=== PATIENT | female | born 1935 | race Caucasian/White ===

== ENCOUNTER 2016-09-24 19:12 | Inpatient (IN) ==
[2016-09-24] MEDS ORDERED: ONDANSETRON 4 MG/2 ML VIAL IV STA ×2 (19:54→20:47)
[2016-09-24] MEDS ORDERED: HYDROmorphone 2 MG/1 ML VIAL IV STA (19:54)
--- NOTE | 2016-09-24 19:57 | Emergency Department Note ---
Arrival - Arrival Chief Complaint: Extremity Injury Stated Complaint: hip fx ED Nursing Triage Note: left femoral head fracture Mode of Arrival: Stretcher Limitations: No Limitations Source: Patient, Family Time Seen by Provider: 09/24/16 19:52 - History of Present Illness HPI Narrative: This 81-year-old white female presents approximate 4 hours after falling in the grocery store by catching her foot and the wheels of the buggy and landing on her left side. She was subsequently taken to [facility] where she was found to have an acute displaced left intertrochanteric femoral neck fracture. She has already had one fractured hip repaired by Dr. Shelton Verduzco and she was sent here for similar circumstances on the left. Currently other than discomfort and nausea, she has no complaints of chest pain, shortness of breath , marifer vomiting, or diaphoresis. Currently she is medically stable. Onset (ago): hour(s) (Patient presents 4 hours post onset of symptoms) Review of System - Review of System 12 point system: reviewed and no additional remarkable complaints except as stated - Review of System Constitutional: Present: as per HPI Respiratory: Present: as per HPI Cardiovascular: Present: as per HPI Gastrointestinal: Present: as per HPI Musculoskeletal: Present: as per HPI Medical,Surgical,& Family Hx - Medical History Cardio: History of: Hypertension Gastrointestinal: History of: GERD - Social History Smoking Status: Never smoker Frequency of Alcohol Use: None Type of Drug Use: None Exam Physical Examination: GENERAL: Well developed, well nourished elderly white in no acute distress. HEENT: Normocephalic. No trauma. Moist mucous membranes. EOMI. PERRLA. ENT NML NECK: Supple. No adenopathy. CARDIAC: Regular. No murmurs. Heart rate 73 CHEST: Clear to auscultation. No respiratory distress. O2 sat 98 ABDOMEN: Soft. Nontender. Active bowel sounds. EXTREMITIES: No trauma. Shortened and externally rotated left lower extremity with resistance to any range of motion.. No pedal edema. SKIN: No diaphoresis. No rash. NEURO: Alert. Neuro intact no focal deficits. Vital Signs: Vital Signs Temperature 97.3 F L 09/24/16 19:20 Pulse Rate 73 09/24/16 19:20 Respiratory Rate 16 09/24/16 19:20 Blood Pressure 187/95 09/24/16 19:20 O2 Sat by Pulse Oximetry 98 09/24/16 19:20 Course - Reevaluation(s) Reevaluation #1: Obviously patient to be admitted. - Consultations Consultation #1: Discussed with hospitalist service who will admit with orthopedics in consultation. Consultation #2: Discussed with Dr. Shelton Verduzco who will plan on orthopedic repair in the morning. Results - Labs Labs: Lab per [place] urinalysis unremarkable, potassium 2.9, BUN 15, creatinine 0.7, white blood cell count 8600, hematocrit 37.7, PT PTT normal. - Impressions EKG: Sinus rhythm at 79 with normal NV interval and QRS duration. Poor R-wave progression anteriorly versus old anterior NM. Nonspecific ST changes. No acute injury pattern noted. - Diagnostic Findings Procedure: Chest x-ray: image reviewed by me, report reviewed by me (Negative chest.), X-ray: image reviewed by me, report reviewed by me (Left hip per [place] reveals acute displaced left intertrochanteric femoral neck fracture with old left pubic symphysis fracture and diffuse osteoarthritis with a background of osteopenia) Disposition Clinical Impression: Left femoral neck fracture Case discussed with: patient, patient's family Condition: Guarded Time of Disposition: 20:30
[2016-09-24] MEDS ORDERED: ONDANSETRON 4 MG/2 ML VIAL ONE ×2 (20:06→20:44)
[2016-09-24] MEDS ORDERED: HYDROmorphone 2 MG/1 ML VIAL ONE (20:07)
--- NOTE | 2016-09-24 20:17 | XRay Report ---
XR chest 1V portable Indication: Preop respiratory evaluation. Chest one view: Comparison 10/06/2012. Calcified atheromatous disease of the aorta is stable. Heart size is normal. No new infiltrates are seen with mild pulmonary hypoinflation present. Degenerative changes of the right shoulder and scoliosis are stable. Impression: Pulmonary hypoinflation. Otherwise no acute cardiopulmonary disease. PROCEDURE INTERPRETED AT [facility] DEPARTMENT OF RADIOLOGY Final Report Signed by: Guanaco Barton M.D.
[2016-09-24] MEDS ORDERED: METOCLOPRAMIDE 10 MG/2 ML VIAL ONE (20:44)
[2016-09-24] MEDS ORDERED: METOCLOPRAMIDE 10 MG/2 ML VIAL IV STA (20:47)
[2016-09-24] MEDS ORDERED: FAMOTIDINE 20 MG/2 ML VIAL IV ONE (20:55)
--- NOTE | 2016-09-24 20:55 | Hospitalist History & Physical ---
Assessment and Plan (1) Closed left hip fracture Status: Acute Assessment and plan: This is a 89-year-old patient with hypertension who presents to the hospital with left hip fracture. The patient's hypertension will be treated with Catapres patch. We will supplement potassium and recheck electrolytes in the morning. We will consult Dr. Poeples for surgical treatment of the patient's hip fracture. EKG reveals decreased T-wave anteriorly consistent with previous infarction. The patient has no clinical evidence of acute infarction. Current Visit: Yes Qualifiers: Encounter type: initial encounter Qualified Code(s): S72.002A - Fracture of unspecified part of neck of left femur, initial encounter for closed fracture (2) Hypertension Status: Acute Current Visit: Yes Qualifiers: Hypertension type: essential hypertension Qualified Code(s): I10 - Essential (primary) hypertension (3) Hypokalemia Status: Acute Current Visit: Yes History of Present Illness Chief complaint: Left hip pain History of present illness: Ms. Tanner is a 81 year old female with history of essential hypertension. The patient fell in the grocery store and sustained left hip fracture. The patient was transferred to [facility] for further evaluation. The patient denies chest pain shortness of breath palpitations or fever. The patient's hip pain symptom is moderate, continuous, and improving after IV sedation. The sedation has caused the patient to have nausea and vomiting. Medical,Surgical,& Family Hx - Medical History Cardio: History of: Hypertension Gastrointestinal: History of: GERD - Surgical History Orthopedic Surgeries: Surgical HX of;: Total Hip Replacement - Family History Family History: Reports;: Family Hypertension - Social History Smoking Status: Never smoker Frequency of Alcohol Use: None Type of Drug Use: None Marital Status: Lives With:: Children Functional capacity: independent ambulation 12 point system: reviewed and no additional remarkable complaints except as stated Exam - Constitutional Vitals: Period Temp Pulse Resp BP Sys/Villa Pulse Ox Last 24 Hr 97.3 F-97.3 F 73-73 16-16 187-187/95-95 98 Exam: Constitutional System: Moderate distress. No tremulousness. Head: Normocephalic, atraumatic. Ears, Nose and Throat System: No evidence of Otitis or Mastoiditis. No epistaxis or discharge Eyes System: Pupils equal, round, and reactive. Extraocular muscles intact. Neck: Supple, without adenopathy, No jugular venous distention. No thyromegaly , neck mass, or prior surgery apparent. Respiratory System: Chest clear to auscultation. Cardiovascular System: Heart with regular rate and rhythm. No murmur. GI System: Abdomen soft, nontender. Normo active bowel sounds present. Musculoskeletal System: limbs with no pedal edema. The left lower extremity is shortened and externally rotated Neurological System: No discernable sensory deficit. No aphasia Psychiatric System: Conversation is rational Results - Labs Lab Results: I have reviewed the past 24 hour labs
[2016-09-24] MEDS: FAMOTIDINE 20 MG/2 ML VIAL IV SCH (20:57)
[2016-09-24] MEDS ORDERED: cloNIDine 0.3 MG/24 HR PATCH TRANSDERM SCH (22:13)
[2016-09-24] MEDS ORDERED: ZALEPLON 5 MG CAPSULE PO PRN (22:13)
[2016-09-24] MEDS: SODIUM CHLORIDE 0.9% 1,000 ML IV SCH (22:44)
[2016-09-24] MEDS: POTASSIUM CHLORIDE RIDER 10 MEQ in PREMIX 1 EACH IV SCH (22:51)
[2016-09-24] MEDS: ONDANSETRON 4 MG/2 ML VIAL IV PRN (23:33)
[2016-09-24] MEDS: MORPHINE 2 MG/1 ML SYRINGE IV PRN (23:33)
[2016-09-25] MEDS: POTASSIUM CHLORIDE RIDER 10 MEQ in PREMIX 1 EACH IV SCH ×3 (02:28→07:55)
[2016-09-25] MEDS: MORPHINE 2 MG/1 ML SYRINGE IV PRN ×2 (03:10→08:42)
[2016-09-25 05:19] LABS: Basophils % 0.4 % (0.0-0.8); Eosinophils % 0.1 % (0.00-10.9); Hematocrit 31.1 VOL% (35.7-47.0); Hemoglobin 10.9 GM/DL (12.0-16.0); Immature Granulocytes % 0.3 %; Immature Granulocytes Absolute 0.02 #; Lymphocytes # 1.8 10*3/uL (1.4-4.0); Lymphocytes % 25.1 % (21.3-54.2); Mean Corpuscular Hemoglobin 32 PG (27-34); Mean Corpuscular Volume 90.9 FL (87-102); Monocytes # 0.7 10*3/uL (0.11-0.8); Monocytes % 9.5 % (1.7-12.7); Neutrophils # 4.5 10*3/uL (1.4-7.4); Neutrophils % 64.6 % (38.7-73.9); Platelet Count 149 T/CUMM (130-400); Red Blood Count 3.42 MC/CUMM (3.8-5.5); Red Cell Distribution Width 12.6 % (9.3-17.3)
[2016-09-25 05:29] LABS: INR 1.1; PT Patient Result 11.3 SECS
[2016-09-25 05:53] LABS: Blood Urea Nitrogen 11 MG/DL (7-18); Calcium 8.7 MG/DL (8.5-10.1); Glucose 125 MG/DL (74-106); Magnesium 1.7 MG/DL (1.8-2.4); Osmolality,Calculated 267.2 MOS/KG (273-304); Potassium 3.3 MMOL/L (3.5-5.1); Sodium 134 MMOL/L (136-145); Troponin I Only < 0.015 NG/ML (0.00-0.045)
--- NOTE | 2016-09-25 06:24 | EKG Report ---
Stationary ECG Study [facility] Test Date: 09/24/2016 8:26:24 PM Pat Name: ELPIDIO VEGA Department: Room: 319 Gender: F Major Assembly Lineman: MADHU : 1935 Requested by: Power Bazan Order Number: [id number] Reading MD: ELLA FOSTER Intervals [place] Rate: 79 P: 11 DC: 167 QRS: -25 QRSD: 92 T: 125 QT: 315 QTc: 350 Interpretive Statements SINUS RHYTHM LOW QRS VOLTAGE IN PRECORDIAL LEADS POSSIBLE ANTERIOR MYOCARDIAL INFARCTION Electronically Signed On 09-25-16 20:46:26 CDT by ELLA FOSTER [email or web address]
[2016-09-25] MEDS: ONDANSETRON 4 MG/2 ML VIAL IV PRN (06:27)
--- NOTE | 2016-09-25 07:42 | EKG Report ---
Stationary ECG Study [facility] Test Date: 09/25/2016 7:41:25 AM Pat Name: ELPIDIO VEGA Department: Room: 319 Gender: F Director Global Intelligence: ARTEMIO : 1935 Requested by: Yanick Perez Order Number: [id number] Reading MD: ZACK CHRISTY Intervals [place] Rate: 69 P: 46 MD: 188 QRS: -26 QRSD: 89 T: -25 QT: 400 QTc: 419 Interpretive Statements SINUS RHYTHM POSSIBLE ANTERIOR MYOCARDIAL INFARCTION, OF INDETERMINATE AGE Electronically Signed On 09-26-16 21:43:11 CDT by ZACK CHRISTY [email or web address]
[2016-09-25] MEDS: SODIUM CHLORIDE 0.9% 1,000 ML IV SCH ×2 (08:20→23:14)
--- NOTE | 2016-09-25 08:36 | XRay Report ---
History: Hip fracture. Preop Date: 09/25/2016 Study: Left hip 2 views Comparison exam: Outside hip x-ray September 24, 2016 There is a relatively acute comminuted intertrochanteric fracture of the left hip with minimal displacement and relatively good alignment. There is also moderate osteophyte formation and moderate to prominent joint space narrowing of the left hip. There is old fracture deformity of the left pubic bone. Impression: Relatively acute comminuted intertrochanteric fracture left hip, unchanged in alignment and positioning compared to the previous day Osteoarthritis left hip PROCEDURE INTERPRETED AT [facility] DEPARTMENT OF RADIOLOGY Final Report Signed by: Dr. Aline Kathleen
[2016-09-25] MEDS: FAMOTIDINE 20 MG/2 ML VIAL IV SCH ×2 (08:42→21:16)
[2016-09-25] MEDS ORDERED: POTASSIUM CHLORIDE RIDER 10 MEQ in PREMIX 1 EACH IV PRN (09:31)
[2016-09-25] MEDS ORDERED: MAGNESIUM SULF RIDER 2 GM in PREMIX 1 EACH IV PRN (09:32)
[2016-09-25] MEDS ORDERED: MAGNESIUM SULF RIDER 4 GM in PREMIX 1 EACH IV PRN (09:32)
--- NOTE | 2016-09-25 09:34 | Hospitalist Progress Note ---
<Obdulia Mondragon - Last Filed: 09/25/16 09:35> Assessment and Plan (1) Hypomagnesemia Status: Acute Assessment and plan: Magnesium noted at 1.7 today. We will correct and recheck in a.m. Current Visit: Yes (2) Closed left hip fracture Status: Acute Assessment and plan: Left hip repair scheduled this a.m. per Ortho. Current Visit: Yes Qualifiers: Encounter type: initial encounter Qualified Code(s): S72.002A - Fracture of unspecified part of neck of left femur, initial encounter for closed fracture (3) Hypertension Status: Acute Assessment and plan: Blood pressures have been essentially stable, we will continue the current medication regimen, and monitor. Current Visit: Yes Qualifiers: Hypertension type: essential hypertension Qualified Code(s): I10 - Essential (primary) hypertension (4) Hypokalemia Status: Acute Assessment and plan: Potassium noted at 3.3 today. We will replace and recheck in a.m. Current Visit: Yes Hospitalist: Subjective Interval history: Patient seen and examined, chart reviewed. No significant overnight events reported per nursing staff. Awaiting transport to the OR for repair of the left hip. Exam - Constitutional Vitals: Period Temp Pulse Resp BP Sys/Villa Pulse Ox Last 24 Hr 97.3 F-98.7 F 70-77 16-16 94-187/43-95 97-99 General appearance: normal weight, no acute distress - Head Head exam: Present: normal inspection, normocephalic, atraumatic - Eye Eye exam: Present: EOMI. Absent: conjunctival injection, nystagmus Pupils: Present: SUZANNE, normal accommodation - ENT ENT exam: Present: normal exam, normal external ear exam, normal oropharynx - Neck Neck exam: Present: normal inspection. Absent: lymphadenopathy, meningismus, tenderness, thyromegaly - Respiratory Respiratory exam: Present: clear to auscultation bilaterally. Absent: rales, rhonchi, stridor, wheezes - Cardiovascular Cardiovascular exam: Present: regular rate and rhythm. Absent: carotid bruit, diastolic murmur, gallop, JVD, rubs, systolic murmur - GI/Abdominal GI/Abdominal exam: Present: normal bowel sounds, soft - Extremities Exam Extremities exam: Present: edema (left hip), other (deformity to left hip) - Back Exam Back exam: Present: normal inspection - Neurological Exam Neurological exam: Present: alert, oriented X3 - Psychiatric Psychiatric exam: Present: normal affect, normal mood - Skin Skin exam: Present: normal color, warm, dry Results - Labs CBC & BMP: 09/25/16 04:44 09/25/16 04:44 Lab Results: I have reviewed the past 24 hour labs Quality Measures - VTE Contraindication to Pharmacological VTE Prophylaxis: High Risk of Bleeding <Ros Ugalde - Last Filed: 09/25/16 10:48> Hospitalist: Subjective Interval history: Patient seen and examined independently of JOSÉ MIGUEL Mondragon, agree with assessment and plan as documented. Patient reports that her pain is controlled. Hip repair scheduled for today by ortho. Exam - Constitutional Vitals: Period Temp Pulse Resp BP Sys/Villa Pulse Ox Last 24 Hr 97.3 F-98.7 F 70-77 16-16 94-187/43-95 97-99 Results - Labs CBC & BMP: 09/25/16 04:44 09/25/16 04:44
--- NOTE | 2016-09-25 10:32 | Orthopedic Consult Note ---
History of Present Illness Chief complaint: Left hip fracture History of present illness: Ms. Tanner is a 81 year old female See dictated report Home Medications Medication Instructions Recorded Confirmed Type Aspirin [Aspirin EC] 81 mg PO DAILY 09/25/16 09/25/16 History Carvedilol 3.125 mg PO BID 09/25/16 09/25/16 History Chlorthalidone 50 mg PO BID 09/25/16 09/25/16 History Clorazepate [Tranxene] 3.75 mg PO BID 09/25/16 09/25/16 History Losartan Potassium [Cozaar] 100 mg PO DAILY 09/25/16 09/25/16 History Naproxen Sodium [Aleve] 220 mg PO BID 09/25/16 09/25/16 History Pantoprazole Sodium [Protonix] 40 mg PO BID 09/25/16 09/25/16 History Potassium Chloride [Klor-Con M20] 20 meq PO BID 09/25/16 09/25/16 History Simvastatin 40 mg PO DAILY 09/25/16 09/25/16 History Allergies Allergy/AdvReac Type Severity Reaction Status Date / Time codeine Allergy Verified 09/25/16 00:46 Medical,Surgical,& Family Hx - Medical History Cardio: History of: Hypertension HEENT: History of: Ear Problem (BILATERAL HEARING LOSS), Eye Problem (CATARACTS) Gastrointestinal: History of: GERD Musculoskeletal: History of: Musculoskeletal Problems (ARTHRITIS IN BACK AND JOINTS) - Surgical History HEENT Surgeries: Surgical HX of: Tonsilectomy & Adenoidectomy (TONSILECTOMY) Abdominal Surgeries: Surgical HX of: Abdominal Surgery, Appendectomy, Cholecystectomy, Colonoscopy, EGD Reproductive Surgeries: Surgical HX of;: Genitourinary Surgery (PELVIC RECONSTRUCTIVE SURGERY), Hysterectomy Orthopedic Surgeries: Surgical HX of;: Total Hip Replacement - Family History Family History: Reports;: Family Hypertension, Family Stroke (BROTHER AND SISTERS) - Social History Smoking Status: Never smoker Frequency of Alcohol Use: None Type of Drug Use: None Exam - Constitutional Vitals: Period Temp Pulse Resp BP Sys/Villa Pulse Ox Last 24 Hr 97.3 F-98.7 F 70-77 16-16 94-187/43-95 97-99 Results - Labs CBC & BMP: 09/25/16 04:44 09/25/16 04:44
[2016-09-25] MEDS ORDERED: ceFAZolin 1,000 MG VIAL ONE (10:43)
[2016-09-25] MEDS ORDERED: PROPOFOL 200 MG/20 ML VIAL IV ONE (11:09)
[2016-09-25] MEDS ORDERED: PHENYLEPHRINE 1 MG/10 ML SYRINGE IV ONE (11:09)
[2016-09-25] MEDS ORDERED: LIDOCAINE 2% 5 ML VIAL ONE (11:09)
[2016-09-25] MEDS ORDERED: LACTULOSE 20 GM/30 ML UDCUP PO PRN (11:35)
[2016-09-25] MEDS ORDERED: PROMETHAZINE 25 MG/1 ML VIAL IM PRN (11:35)
[2016-09-25] MEDS ORDERED: MAGNESIUM HYDROXIDE SUSP 30 ML UDCUP PO PRN (11:35)
[2016-09-25] MEDS ORDERED: BISACODYL 10 MG SUPP RECTAL PRN (11:35)
--- NOTE | 2016-09-25 12:29 | XRay Report ---
XR hip 2V LT Indication: Intraoperative C-arm fluoroscopy. Comparison: None. Technique: A total of 5 images were obtained intraoperatively using C-arm fluoroscopy. Findings: Images were reviewed and deemed satisfactory by the operative physician. Total fluoroscopy time was 29.3 seconds. Impression: 1. C-arm usage as detailed. 09/25/2016 12:25 PM PROCEDURE INTERPRETED AT [facility] DEPARTMENT OF RADIOLOGY Final Report Signed by: Dr. Jean-Claude Grigsby
--- NOTE | 2016-09-25 12:36 | Anesthesia Post-Op ---
Anesthesia Post OP - Post Ansesthetic Evaluation Patient seen in post op: Yes Resp: within normal limits CV: within normal limits Mental: within normal limits Temp: within normal limits [id number]-[id number]: within normal limits Nausea and Vomiting: within normal limits Pain: within normal limits
[2016-09-25] MEDS ORDERED: MIDAZOLAM 2 MG/2 ML VIAL ONE (12:40)
[2016-09-25] MEDS ORDERED: fentaNYL 100 MCG/2 ML VIAL ONE (12:40)
[2016-09-25] MEDS ORDERED: ePHEDrine 50 MG/ML AMP ONE (12:41)
[2016-09-25] MEDS ORDERED: SODIUM CHLORIDE 0.9% 100 ML IV ONE (12:41)
[2016-09-25] MEDS ORDERED: LACTATED RINGERS 1,000 ML IV ONE (12:41)
[2016-09-25] MEDS: oxyCODONE/ACETAMINOPHEN 5-325 MG TABLET PO PRN (14:25)
--- NOTE | 2016-09-25 15:27 | Consultation ---
DATE OF CONSULT: 09/25/2016 HISTORY: An 81-year-old white female, ambulated and fell yesterday, sustaining a displaced intertroc hanteric fracture to her left hip. She was referred from [place]. No x-rays were available here for review this morning. I was asked to evaluate regarding her left hip fracture. PHYSICAL EXAMINATION GENERAL: A well-developed, well-nourished female. She is awake and alert, complaining only of left hip pain. EXTREMITIES: There is no pain, no crepitation. General range of motion of either upper extremity or on the right lower. On the left side, she has decrease motion about the left hip secondary to pain. There is some mild shortening in external rotation. No pain distally about the tib, fib or ankle. She wiggles her toes actively. RADIOGRAPHS: Radiographs confirming degenerative left hip with displaced intertrochanteric fracture. IMPRESSION: Intertrochanteric fracture of the left hip. PLAN: I have discussed with she and her family present the diagnosis and need for open reduction and quality internship al fixation. We will plan on proceeding with that later today. We also discussed the postoperative course and its expectations. All questions were answered. She appears understand and agreed with e plan.
--- NOTE | 2016-09-25 17:15 | Orthopedic Progress Note ---
Orthopedics - Subjective Interval history: Comfortable neurovascular intact discussed up in a.m. will likely need swing bed placement at [place] Exam - Constitutional Vitals: Period Temp Pulse Resp BP Sys/Villa Pulse Ox Last 24 Hr 97.3 F-99.4 F 60-87 16-20 94-187/43-95 93-100 Results - Labs CBC & BMP: 09/25/16 04:44 09/25/16 04:44 Quality Measures - VTE Contraindication to Pharmacological VTE Prophylaxis: High Risk of Bleeding
--- NOTE | 2016-09-26 01:47 | Operative Note ---
PREOPERATIVE DIAGNOSIS: INTERTROCHANTERIC FRACTURE, LEFT HIP. POSTOPERATIVE DIAGNOSIS: SAME. OPERATIVE PROCEDURE: COMPRESSION HIP SCREW, LEFT. SURGEON: Cristian Peoples Jr., MD ANESTHESIA: Spinal. INDICATIONS: This is an 81-year-old white female who fell last night sustaining a displaced intertro chanteric fracture. She was taken to the operating room for repair after lengthy discussion with she and her family regarding the nature of the procedure and need for the stabilization. OPERATIVE PROCEDURE: The patient was taken to the operating room, and under spinal anesthetic, she wa s placed on a fracture table. The right leg placed in a well padded leg hurst and left in a tractio n boot. Traction internal rotation was applied and fluoroscopy was brought in to confirm satisfactor y alignment and position. The hip was then prepped and draped in the usual sterile manner and she re ceived Ancef preoperatively. A longitudinal incision was made over the lateral aspect of the left hi p. Sharp dissection was carried down through the skin and subcutaneous tissue. The IT band was spli t and the vastus was split reflecting anteriorly. Guide pin was placed in the center of the femoral head on both the AP and lateral projections. An 85-mm lag screw and a 130 four-hole sideplate were u sed to secure the reduction. The plate was secured in standard technique. Hemostasis was verified. The wound closed in layers using 0-Vicryl for the vastus as well as IT band layers, 2-0 Vicryl for s ubcutaneous layer, and roe for skin. ESTIMATED BLOOD LOSS: 100 cc. COMPLICATIONS: None. COUNTS: Correct. After application of sterile dressing, she was taken to recovery room in a stable condition.
[2016-09-26 04:35] LABS: Basophils % 0.3 % (0.0-0.8); Eosinophils # 0.2 10*3/uL (0.0-0.87); Eosinophils % 3.2 % (0.00-10.9); Hematocrit 26.1 VOL% (35.7-47.0); Hemoglobin 8.9 GM/DL (12.0-16.0); Immature Granulocytes % 0.2 %; Immature Granulocytes Absolute 0.01 #; Lymphocytes # 1.6 10*3/uL (1.4-4.0); Lymphocytes % 25.2 % (21.3-54.2); Mean Corpuscular HGB Conc 34.1 GM/DL (32-36); Mean Corpuscular Hemoglobin 32 PG (27-34); Mean Corpuscular Volume 92.9 FL (87-102); Mean Platelet Volume 10.1 FL (9.6-12.0); Monocytes # 0.6 10*3/uL (0.11-0.8); Monocytes % 10.1 % (1.7-12.7); Neutrophils # 3.8 10*3/uL (1.4-7.4); Platelet Count 118 T/CUMM (130-400); Red Blood Count 2.81 MC/CUMM (3.8-5.5); Red Cell Distribution Width 12.7 % (9.3-17.3); White Blood Count 6.2 T/CUMM (4-12)
[2016-09-26] MEDS: FONDAPARINUX 2.5 MG/0.5 ML SYRINGE SUBCUT SCH (05:04)
[2016-09-26 05:15] LABS: Calcium 8.4 MG/DL (8.5-10.1); Magnesium 1.8 MG/DL (1.8-2.4); Osmolality,Calculated 270.8 MOS/KG (273-304); Potassium 3.2 MMOL/L (3.5-5.1)
[2016-09-26] MEDS: oxyCODONE/ACETAMINOPHEN 5-325 MG TABLET PO PRN ×3 (05:43→20:33)
[2016-09-26] MEDS: SODIUM CHLORIDE 0.9% 1,000 ML IV SCH ×3 (07:45→17:53)
--- NOTE | 2016-09-26 08:22 | Orthopedic Progress Note ---
Orthopedics - Subjective Interval history: Hemoglobin 8.9 comfortable ready to start PT most likely swing bed Friday or Friday follow-up with mobile x-ray about 3 week Exam - Constitutional Vitals: Period Temp Pulse Resp BP Sys/Villa Pulse Ox Last 24 Hr 96.9 F-99.4 F 60-87 16-20 86-138/38-73 91-100 Results - Labs CBC & BMP: 09/26/16 03:50 09/26/16 03:50 Quality Measures - VTE Contraindication to Pharmacological VTE Prophylaxis: High Risk of Bleeding
[2016-09-26] MEDS: FAMOTIDINE 20 MG/2 ML VIAL IV SCH ×2 (08:33→21:12)
--- NOTE | 2016-09-26 09:39 | Hospitalist Progress Note ---
<Obdulia Mondragon - Last Filed: 09/26/16 09:37> Assessment and Plan (1) Hypomagnesemia Status: Acute Assessment and plan: Magnesium noted at 1.7 today. We will correct and recheck in a.m. 09/26-Magnesium level improved after replacement on yesterday, mag level noted at 1.8 today. Current Visit: Yes (2) Closed left hip fracture Status: Acute Assessment and plan: Left hip repair scheduled this a.m. per Ortho. 09/26-This is postop day 1, PT to start this a.m. Current Visit: Yes Qualifiers: Encounter type: initial encounter Qualified Code(s): S72.002A - Fracture of unspecified part of neck of left femur, initial encounter for closed fracture (3) Hypertension Status: Acute Assessment and plan: Blood pressures have been essentially stable, we will continue the current medication regimen, and monitor. Current Visit: Yes Qualifiers: Hypertension type: essential hypertension Qualified Code(s): I10 - Essential (primary) hypertension (4) Hypokalemia Status: Acute Assessment and plan: Potassium noted at 3.3 today. We will replace and recheck in a.m. 09/26-Potassium noted at 3.2 today. We will replace and recheck in a.m. Current Visit: Yes (5) Blood loss, postoperative Status: Acute Assessment and plan: Hemoglobin and hematocrit noted at 8.9 at 26.1 today down from 10.9 at 31.1 on yesterday. This is likely secondary to surgery. We will recheck in a.m. Current Visit: Yes Hospitalist: Subjective Interval history: Patient seen and examined, chart reviewed. No significant overnight events reported per staff. Post-op day 1 status post left hip repair on yesterday. Exam - Constitutional Vitals: Period Temp Pulse Resp BP Sys/Villa Pulse Ox Last 24 Hr 96.9 F-99.4 F 60-87 16-20 86-138/38-73 91-100 General appearance: normal weight, no acute distress - Head Head exam: Present: normal inspection, normocephalic, atraumatic - Eye Eye exam: Present: EOMI. Absent: conjunctival injection Pupils: Present: SUZANNE, normal accommodation - ENT ENT exam: Present: normal exam, normal external ear exam, normal oropharynx - Neck Neck exam: Present: normal inspection. Absent: lymphadenopathy, meningismus, tenderness, thyromegaly - Respiratory Respiratory exam: Present: clear to auscultation bilaterally. Absent: rales, rhonchi, stridor, wheezes - Cardiovascular Cardiovascular exam: Present: regular rate and rhythm. Absent: carotid bruit, diastolic murmur, gallop, JVD, rubs, systolic murmur - GI/Abdominal GI/Abdominal exam: Present: normal bowel sounds, soft - Extremities Exam Extremities exam: Present: full ROM (decreased ROM; left hip repair on yesterday.), other (surgical incision to left hip) - Back Exam Back exam: Present: normal inspection - Neurological Exam Neurological exam: Present: alert, oriented X3, CN II-XII intact - Psychiatric Psychiatric exam: Present: normal affect, normal mood - Skin Skin exam: Present: normal color, warm, dry Results - Labs CBC & BMP: 09/26/16 03:50 09/26/16 03:50 Lab Results: I have reviewed the past 24 hour labs Quality Measures - VTE Contraindication to Pharmacological VTE Prophylaxis: High Risk of Bleeding Specialty Discharge - Follow Up or Referrals Follow up with: Cristian Peoples Jr., MD [Physician] - (mobile x-ray prior to discharge from [facility] and send to dr. mamie carrera. office for further review and orders.) <Ros Ugalde - Last Filed: 09/26/16 13:41> Hospitalist: Subjective Interval history: Patient seen and examined independently of JOSÉ MIGUEL Mondragon, agree with history, assessment and plan as documented. Pain is well controlled. Worked with PT today. Plan is for swing bed when ready for discharge. H/H did drop some today, will monitor. Exam - Constitutional Vitals: Period Temp Pulse Resp BP Sys/Villa Pulse Ox Last 24 Hr 96.9 F-98.6 F 60-87 16-18 86-130/38-73 91-100 Results - Labs CBC & BMP: 09/26/16 03:50 09/26/16 03:50
[2016-09-27 05:42] LABS: Basophils % 0.2 % (0.0-0.8); Eosinophils # 0.2 10*3/uL (0.0-0.87); Eosinophils % 1.8 % (0.00-10.9); Hematocrit 24.3 VOL% (35.7-47.0); Hemoglobin 8.4 GM/DL (12.0-16.0); Immature Granulocytes % 0.5 %; Immature Granulocytes Absolute 0.04 #; Lymphocytes # 1.8 10*3/uL (1.4-4.0); Lymphocytes % 21.2 % (21.3-54.2); Mean Corpuscular HGB Conc 34.6 GM/DL (32-36); Mean Corpuscular Hemoglobin 32 PG (27-34); Mean Corpuscular Volume 93.1 FL (87-102); Mean Platelet Volume 9.6 FL (9.6-12.0); Monocytes % 12.1 % (1.7-12.7); Neutrophils # 5.5 10*3/uL (1.4-7.4); Neutrophils % 64.2 % (38.7-73.9); Platelet Count 107 T/CUMM (130-400); Red Blood Count 2.61 MC/CUMM (3.8-5.5); Red Cell Distribution Width 12.5 % (9.3-17.3); White Blood Count 8.5 T/CUMM (4-12)
[2016-09-27 06:12] LABS: Albumin 2.4 G/DL (3.4-5.0); Magnesium 1.9 MG/DL (1.8-2.4); Osmolality,Calculated 268.1 MOS/KG (273-304); Phosphorous 1.6 MG/DL (2.5-4.9); Potassium 2.9 MMOL/L (3.5-5.1); Total Protein 4.4 G/DL (6.4-8.3)
[2016-09-27] MEDS: FONDAPARINUX 2.5 MG/0.5 ML SYRINGE SUBCUT SCH (06:18)
[2016-09-27] MEDS: SODIUM CHLORIDE 0.9% 1,000 ML IV SCH ×2 (06:20→18:02)
[2016-09-27] MEDS ORDERED: POTASSIUM PHOSPHATE 30 MMOL in SODIUM CHLORIDE 0.9% 250 ML IV ONE (07:30)
--- NOTE | 2016-09-27 09:31 | Orthopedic Progress Note ---
Assessment and Plan (1) Closed left hip fracture Status: Acute Assessment and plan: Continued care: PT, pain control, DVT prophylaxis, and discharge planning to swing bed Current Visit: Yes Qualifiers: Encounter type: initial encounter Qualified Code(s): S72.002A - Fracture of unspecified part of neck of left femur, initial encounter for closed fracture (2) Blood loss, postoperative Status: Acute Assessment and plan: We will continue to follow Current Visit: Yes Orthopedics - Subjective Interval history: Patient seen and examined. No complaints. Exam - Constitutional Vitals: Period Temp Pulse Resp BP Sys/Villa Pulse Ox Last 24 Hr 97.1 F-98.5 F 70-99 18-20 92-102/45-74 90-96 - Extremities Exam Extremities exam: Present: normal inspection (LLE: Dressing clean, dry, intact. Compartments soft. Sensation intact. Full active range of motion foot and ankle.) Results - Labs CBC & BMP: 09/27/16 05:25 09/27/16 05:25 Lab Results: I have reviewed the past 24 hour labs - Diagnostic Findings Procedure: X-ray: image reviewed by me, report reviewed by me Quality Measures - VTE Contraindication to Pharmacological VTE Prophylaxis: High Risk of Bleeding Specialty Discharge - Follow Up or Referrals Follow up with: Cristian Peoples Jr., MD [Physician] - (mobile x-ray prior to discharge from [facility] and send to dr. mamie jain office for further review and orders.)
[2016-09-27] MEDS: FAMOTIDINE 20 MG/2 ML VIAL IV SCH ×2 (09:35→20:29)
--- NOTE | 2016-09-27 09:36 | Hospitalist Progress Note ---
<Obdulia Mondragon - Last Filed: 09/27/16 09:34> Assessment and Plan (1) Hypomagnesemia Status: Acute Assessment and plan: Magnesium noted at 1.7 today. We will correct and recheck in a.m. 09/26-Magnesium level improved after replacement on yesterday, mag level noted at 1.8 today. 09/27-Magnesium level noted at 1.9 today. Current Visit: Yes (2) Closed left hip fracture Status: Acute Assessment and plan: Left hip repair scheduled this a.m. per Ortho. 09/26-This is postop day 1, PT to start this a.m. 09/27-postop day #2. Continue PT per Ortho recommendations. Patient is anticipating discharge on this weekend to swing bed in [place], [place]. Current Visit: Yes Qualifiers: Encounter type: initial encounter Qualified Code(s): S72.002A - Fracture of unspecified part of neck of left femur, initial encounter for closed fracture (3) Hypertension Status: Acute Assessment and plan: Blood pressures have been essentially stable, we will continue the current medication regimen, and monitor. Current Visit: Yes Qualifiers: Hypertension type: essential hypertension Qualified Code(s): I10 - Essential (primary) hypertension (4) Hypokalemia Status: Acute Assessment and plan: Potassium noted at 3.3 today. We will replace and recheck in a.m. 09/26-Potassium noted at 3.2 today. We will replace and recheck in a.m. /-Potassium noted at 2.9 today. We will correct the deficit and recheck in a.m. Current Visit: Yes (5) Blood loss, postoperative Status: Acute Assessment and plan: Hemoglobin and hematocrit noted at 8.9 at 26.1 today down from 10.9 at 31.1 on yesterday. This is likely secondary to surgery. We will recheck in a.m. /2-hemoglobin hematocrit noted at 8.4 24.3 today, down from 8.9-26.1. We will monitor closely. We will recheck CBC in a.m. Current Visit: Yes (6) Hypophosphatemia Status: Acute Assessment and plan: Phosphorus today noted at 1.6. We will correct the deficit and recheck in a.m. Current Visit: Yes Hospitalist: Subjective Interval history: Patient seen and examined, chart reviewed. No significant overnight events. This is postoperative day #2. Discharge planned for this weekend to swing bed in [place], [place] per patient request. Exam - Constitutional Vitals: Period Temp Pulse Resp BP Sys/Villa Pulse Ox Last 24 Hr 97.1 F-98.5 F 70-99 18-20 92-102/45-74 90-96 General appearance: normal weight, no acute distress - Head Head exam: Present: normal inspection, normocephalic, atraumatic - Eye Eye exam: Present: EOMI. Absent: conjunctival injection Pupils: Present: SUZANNE, normal accommodation - ENT ENT exam: Present: normal exam, normal external ear exam, normal oropharynx - Neck Neck exam: Present: normal inspection. Absent: lymphadenopathy, meningismus, tenderness, thyromegaly - Respiratory Respiratory exam: Present: clear to auscultation bilaterally. Absent: rales, rhonchi, stridor, wheezes - Cardiovascular Cardiovascular exam: Present: regular rate and rhythm. Absent: carotid bruit, diastolic murmur, gallop, JVD, rubs, systolic murmur - GI/Abdominal GI/Abdominal exam: Present: normal bowel sounds, rebound - Extremities Exam Extremities exam: Present: normal inspection, normal capillary refill, full ROM. Absent: edema - Back Exam Back exam: Present: normal inspection - Neurological Exam Neurological exam: Present: alert, oriented X3, CN II-XII intact - Psychiatric Psychiatric exam: Present: normal affect, normal mood - Skin Skin exam: Present: normal color, warm, dry Results - Labs CBC & BMP: 09/27/16 05:25 09/27/16 05:25 Lab Results: I have reviewed the past 24 hour labs Quality Measures - VTE Contraindication to Pharmacological VTE Prophylaxis: High Risk of Bleeding Specialty Discharge - Follow Up or Referrals Follow up with: Cristian Peoples Jr., MD [Physician] - (mobile x-ray prior to discharge from [facility] and send to dr. mamie carrera. office for further review and orders.) <Ros Ugalde - Last Filed: 09/27/16 14:46> Hospitalist: Subjective Interval history: Patient seen and examined independently of JOSÉ MIGUEL Mondragon, agree with assessment and plan as documented. Patient is controlled. No bowel movement yet. Exam - Constitutional Vitals: Period Temp Pulse Resp BP Sys/Villa Pulse Ox Last 24 Hr 97.1 F-98.5 F 70-99 18-20 92-108/45-74 90-94 Results - Labs CBC & BMP: 09/27/16 05:25 09/27/16 05:25
[2016-09-27] MEDS: oxyCODONE/ACETAMINOPHEN 5-325 MG TABLET PO PRN ×2 (11:37→22:22)
[2016-09-28 02:29] LABS: Basophils % 0.3 % (0.0-0.8); Eosinophils # 0.2 10*3/uL (0.0-0.87); Eosinophils % 1.9 % (0.00-10.9); Hematocrit 24.6 VOL% (35.7-47.0); Hemoglobin 8.4 GM/DL (12.0-16.0); Immature Granulocytes % 0.3 %; Immature Granulocytes Absolute 0.03 #; Lymphocytes # 2.5 10*3/uL (1.4-4.0); Lymphocytes % 25.2 % (21.3-54.2); Mean Corpuscular HGB Conc 34.1 GM/DL (32-36); Mean Corpuscular Hemoglobin 32 PG (27-34); Mean Corpuscular Volume 93.2 FL (87-102); Mean Platelet Volume 10.5 FL (9.6-12.0); Neutrophils # 6.2 10*3/uL (1.4-7.4); Neutrophils % 62.3 % (38.7-73.9); Platelet Count 134 T/CUMM (130-400); Red Blood Count 2.64 MC/CUMM (3.8-5.5); Red Cell Distribution Width 12.7 % (9.3-17.3); White Blood Count 9.9 T/CUMM (4-12)
[2016-09-28 03:06] LABS: Albumin 2.5 G/DL (3.4-5.0); Bilirubin,Total 0.9 MG/DL (0.2-1.0); Calcium 8.4 MG/DL (8.5-10.1); Osmolality,Calculated 275.5 MOS/KG (273-304); Potassium 3.5 MMOL/L (3.5-5.1); Total Protein 4.6 G/DL (6.4-8.3)
[2016-09-28] MEDS: SODIUM CHLORIDE 0.9% 1,000 ML IV SCH ×3 (04:00→14:29)
[2016-09-28] MEDS: FONDAPARINUX 2.5 MG/0.5 ML SYRINGE SUBCUT SCH (06:02)
[2016-09-28] MEDS: oxyCODONE/ACETAMINOPHEN 5-325 MG TABLET PO PRN (08:57)
[2016-09-28] MEDS: FAMOTIDINE 20 MG/2 ML VIAL IV SCH ×2 (08:58→21:19)
--- NOTE | 2016-09-28 10:00 | Orthopedic Progress Note ---
Assessment and Plan (1) Closed left hip fracture Status: Acute Assessment and plan: Continued care: PT, pain control, DVT prophylaxis, and discharge planning to swing bed Current Visit: Yes Qualifiers: Encounter type: initial encounter Qualified Code(s): S72.002A - Fracture of unspecified part of neck of left femur, initial encounter for closed fracture (2) Blood loss, postoperative Status: Acute Assessment and plan: We will continue to follow Current Visit: Yes Orthopedics - Subjective Interval history: Patient seen and examined. No complaints. States feeling better today. Exam - Constitutional Vitals: Period Temp Pulse Resp BP Sys/Villa Pulse Ox Last 24 Hr 97.2 F-99.6 F 64-84 16-20 92-108/44-66 92-97 - Extremities Exam Extremities exam: Present: normal inspection (Left lower extremity: Dressing clean, dry, intact. Compartments soft. Full active range of motion foot and ankle. Sensation intact. Cap refill brisk) Results - Labs CBC & BMP: 09/28/16 01:41 09/28/16 01:41 Lab Results: I have reviewed the past 24 hour labs Quality Measures - VTE Contraindication to Pharmacological VTE Prophylaxis: High Risk of Bleeding Specialty Discharge - Follow Up or Referrals Follow up with: Cristian Peoples Jr., MD [Physician] - (mobile x-ray prior to discharge from [facility] and send to dr. mamie jain office for further review and orders.)
--- NOTE | 2016-09-28 13:45 | Hospitalist Progress Note ---
Assessment and Plan (1) Closed left hip fracture Status: Acute Assessment and plan: Ortho managing s/p repair on arixtra Current Visit: Yes Qualifiers: Encounter type: initial encounter Qualified Code(s): S72.002A - Fracture of unspecified part of neck of left femur, initial encounter for closed fracture (2) Hypertension Status: Acute Assessment and plan: controlled on clonidine Current Visit: Yes Qualifiers: Hypertension type: essential hypertension Qualified Code(s): I10 - Essential (primary) hypertension Hospitalist: Subjective Interval history: No acute events overnight. Patient denies hip pain. She does report swelling around her eyes. She had a bowel movement yesterday. Exam - Constitutional Vitals: Period Temp Pulse Resp BP Sys/Villa Pulse Ox Last 24 Hr 96.8 F-99.6 F 64-84 16-20 92-114/44-61 92-97 General appearance: over weight - Head Head exam: Present: normocephalic, atraumatic - Eye Eye exam: Present: EOMI Pupils: Present: SUZANNE - ENT ENT exam: Present: normal exam - Neck Neck exam: Present: normal inspection - Respiratory Respiratory exam: Present: clear to auscultation bilaterally. Absent: rhonchi, wheezes - Cardiovascular Cardiovascular exam: Present: regular rate and rhythm - GI/Abdominal GI/Abdominal exam: Present: normal bowel sounds, soft. Absent: tenderness, rebound - Extremities Exam Extremities exam: Present: normal inspection - Back Exam Back exam: Present: normal inspection - Neurological Exam Neurological exam: Present: alert, oriented X3 - Psychiatric Psychiatric exam: Present: normal affect, normal mood - Skin Skin exam: Present: warm, intact Results - Labs CBC & BMP: 09/28/16 01:41 09/28/16 01:41 Quality Measures - VTE Contraindication to Pharmacological VTE Prophylaxis: High Risk of Bleeding Specialty Discharge - Follow Up or Referrals Follow up with: Cristian Peoples Jr., MD [Physician] - (mobile x-ray prior to discharge from [facility] and send to dr. mamie jain office for further review and orders.)
[2016-09-28] MEDS: diphenhydrAMINE CAP 25 MG CAPSULE PO PRN (14:29)
[2016-09-29] MEDS: SODIUM CHLORIDE 0.9% 1,000 ML IV SCH (01:41)
[2016-09-29] MEDS: MORPHINE 2 MG/1 ML SYRINGE IV PRN ×2 (04:08→08:54)
[2016-09-29] MEDS: FONDAPARINUX 2.5 MG/0.5 ML SYRINGE SUBCUT SCH (05:25)
[2016-09-29 06:00] LABS: Hematocrit 22.8 VOL% (35.7-47.0); Hemoglobin 7.8 GM/DL (12.0-16.0)
[2016-09-29] MEDS: FAMOTIDINE 20 MG/2 ML VIAL IV SCH ×2 (08:55→21:22)
--- NOTE | 2016-09-29 08:59 | Orthopedic Progress Note ---
Assessment and Plan (1) Closed left hip fracture Status: Acute Assessment and plan: Continued care: PT, pain control, DVT prophylaxis, and discharge planning to swing bed Medication change per patient's request Current Visit: Yes Qualifiers: Encounter type: initial encounter Qualified Code(s): S72.002A - Fracture of unspecified part of neck of left femur, initial encounter for closed fracture (2) Blood loss, postoperative Status: Acute Assessment and plan: Asymptomatic. Will continue to follow Current Visit: Yes Orthopedics - Subjective Interval history: Patient seen and examined. Requesting change in pain medication from Percocet to Vicodin Exam - Constitutional Vitals: Period Temp Pulse Resp BP Sys/Villa Pulse Ox Last 24 Hr 96.8 F-98.2 F 77-87 17-20 104-139/47-70 93-100 - Extremities Exam Extremities exam: Present: normal inspection (Left lower extremity: Dressing clean, dry, intact. Compartments soft. Sensation intact. Full active range of motion foot and ankle. Cap refill brisk) Results - Labs CBC & BMP: 09/29/16 05:52 09/28/16 01:41 Lab Results: I have reviewed the past 24 hour labs Quality Measures - VTE Contraindication to Pharmacological VTE Prophylaxis: High Risk of Bleeding Specialty Discharge - Follow Up or Referrals Follow up with: Cristian Peoples Jr., MD [Physician] - (mobile x-ray prior to discharge from [facility] and send to dr. mamie carrera. office for further review and orders.)
[2016-09-29] MEDS: diphenhydrAMINE CAP 25 MG CAPSULE PO PRN (09:04)
[2016-09-29] MEDS: ONDANSETRON 4 MG/2 ML VIAL IV PRN (09:58)
--- NOTE | 2016-09-29 12:04 | Hospitalist Progress Note ---
Assessment and Plan (1) Closed left hip fracture Status: Acute Assessment and plan: Ortho managing s/p repair on arixtra Current Visit: Yes Qualifiers: Encounter type: initial encounter Qualified Code(s): S72.002A - Fracture of unspecified part of neck of left femur, initial encounter for closed fracture (2) Hypertension Status: Acute Assessment and plan: controlled on clonidine Current Visit: Yes Qualifiers: Hypertension type: essential hypertension Qualified Code(s): I10 - Essential (primary) hypertension Hospitalist: Subjective Interval history: No acute events overnight. Pain medications changed today. H/H down some. Will repeat today. Exam - Constitutional Vitals: Period Temp Pulse Resp BP Sys/Villa Pulse Ox Last 24 Hr 97.1 F-98.2 F 77-87 17-20 104-139/55-70 93-100 General appearance: over weight - Head Head exam: Present: normocephalic, atraumatic - Eye Eye exam: Present: EOMI Pupils: Present: SUZANNE - ENT ENT exam: Present: normal exam - Neck Neck exam: Present: normal inspection - Respiratory Respiratory exam: Present: clear to auscultation bilaterally. Absent: wheezes - Cardiovascular Cardiovascular exam: Present: regular rate and rhythm - GI/Abdominal GI/Abdominal exam: Present: normal bowel sounds, soft. Absent: tenderness - Extremities Exam Extremities exam: Present: normal inspection - Back Exam Back exam: Present: normal inspection - Neurological Exam Neurological exam: Present: alert, oriented X3 - Psychiatric Psychiatric exam: Present: normal affect, normal mood - Skin Skin exam: Present: warm, intact Results - Labs CBC & BMP: 09/29/16 05:52 09/28/16 01:41 Quality Measures - VTE Contraindication to Pharmacological VTE Prophylaxis: High Risk of Bleeding Specialty Discharge - Follow Up or Referrals Follow up with: Cristian Peoples Jr., MD [Physician] - (mobile x-ray prior to discharge from [facility] and send to dr. mamie jain office for further review and orders.)
[2016-09-29 14:59] LABS: Hematocrit 24.3 VOL% (35.7-47.0)
[2016-09-29 19:19] LABS: Apearance,Urine CLOUDY (Clear); Bacteria,Urine Occasional /HPF (Few); Bilirubin,Urine Negative (Negative); Blood, Urine Moderate mg/dL (Negative); Glucose,Urine (UA) Negative (Negative); Ketones,Urine Negative (Negative); Nitrite,Urine Negative (Negative); Protein,Urine Negative; RBC,Urine 3 /HPF (0-4); Squamous Epithelial Cell,Urine Occasional /HPF (0-10); Urine Color Yellow (Yellow); Urine Specific Gravity 1.002 (1.001-1.035); Urine Urobilinogen < 2.0 EU/DL (0.2-1.0); WBC,Urine 174 /HPF (0-6)
[2016-09-30] MEDS: FONDAPARINUX 2.5 MG/0.5 ML SYRINGE SUBCUT SCH (06:13)
[2016-09-30 06:14] LABS: Hematocrit 24.8 VOL% (35.7-47.0)
[2016-09-30] MEDS: FAMOTIDINE 20 MG/2 ML VIAL IV SCH (09:04)
[2016-09-30] MEDS ORDERED: LEVOFLOXACIN 500 MG TABLET PO SCH (10:00)
[2016-09-30 11:17] VITALS: BP 101/61
--- NOTE | 2016-09-30 11:18 | Discharge Summary ---
Hospital Course - Hospital Course Hospital Course: Ms. Tanner is a 81 year old female with history of essential hypertension. The patient fell in the grocery store and sustained left hip fracture. The patient' s hip pain symptom is moderate, continuous, and improving after IV pain medications. Orthopedics was consulted. She underwent repair 09/25/16 with a compression screw placed. She has done well post-op, working well with physical therapy. Her hospital course was complicated by anemia, which has remained stable and did not require transfusion. She was also found to have a urinary tract infection overnight, started on levaquin. - Time spent with patient Time with patient DS: Less than 30 minutes Diagnosis - Discharge Diagnosis (1) Closed left hip fracture Status: Resolved (2) Hypertension Status: Chronic Specialty Discharge - Follow Up or Referrals Follow up with: Cristian Peoples Jr., MD [Physician] - 10/31/16 12:30 pm (mobile x-ray prior to discharge from [facility] and send to dr. mamie jain office for further review and orders.) Discharge Plan - Discharge Data Disposition: Disch/er- Rehab Fac Condition at Discharge: Stable Discharge Diet: advance to your usual diet Activity: as per physical therapy Hygiene: no restrictions Weight Bearing at Discharge: weight bear as tolerated Contact your physician if you experience:: fever over 101, pain uncontrolled by pain medications - Discharge Medications New Fondaparinux [Arixtra] 2.5 mg SUBCUT Q24H syringe HYDROcodone/ACETAMIN 5-325 [[place] 5-325] 1 tablet PO Q4H PRN #30 tablet PRN Reason: Pain Mild (1-3) Levofloxacin Tab [Levaquin Tab] 500 mg PO Q24H #4 tablet Continue Clorazepate [Tranxene] 3.75 mg PO BID Simvastatin 40 mg PO DAILY Pantoprazole Sodium [Protonix] 40 mg PO BID Naproxen Sodium [Aleve] 220 mg PO BID Carvedilol 3.125 mg PO BID Potassium Chloride [Klor-Con M20] 20 meq PO BID Losartan Potassium [Cozaar] 100 mg PO DAILY Chlorthalidone 50 mg PO BID Aspirin [Aspirin EC] 81 mg PO DAILY - Follow Up or Referral Follow Up: Cristian Peoples Jr., MD [Physician] - 10/31/16 12:30 pm (mobile x-ray prior to discharge from [facility] and send to dr. green jrs. office for further review and orders.) - Forms/Instructions Instructions: Hip Arthroscopy (GEN), Hip Fracture, Chargemaster Specialist (GEN) Exam - Constitutional Vitals: Period Temp Pulse Resp BP Sys/Villa Pulse Ox Last 24 Hr 97.0 F-98.6 F 72-91 18-20 104-139/46-71 93-97 General appearance: over weight - Head Head exam: Present: normocephalic, atraumatic - Eye Eye exam: Present: EOMI Pupils: Present: SUZANNE - ENT ENT exam: Present: normal exam - Neck Neck exam: Present: normal inspection - Respiratory Respiratory exam: Present: clear to auscultation bilaterally. Absent: wheezes - Cardiovascular Cardiovascular exam: Present: regular rate and rhythm - GI/Abdominal GI/Abdominal exam: Present: normal bowel sounds, soft. Absent: tenderness, rebound - Extremities Exam Extremities exam: Present: normal inspection - Back Exam Back exam: Present: normal inspection - Neurological Exam Neurological exam: Present: alert, oriented X3 - Psychiatric Psychiatric exam: Present: normal affect, normal mood - Skin Skin exam: Present: warm, intact Discharge Results Procedures and tests throughout hospitalization: Pending Orders 09/29/16 Urine Culture Routine Labs on day of discharge: Labs from last 24 hours 09/30/16 09/29/16 09/29/16 04:38 18:00 14:42 Hgb 8.0 L 8.0 L Hct 24.8 L 24.3 L Urine Color Yellow Urine Appearance Cloudy Urine pH 8.0 Ur Specific [place] 1.002 Urine Protein Negative Urine Glucose (UA) Negative Urine Ketones Negative Urine Blood Moderate Urine Nitrate Negative Urine Bilirubin Negative Urine Urobilinogen < 2.0 H Urine Leukocytes Large H Urine RBC 3 Urine WBC 174 Urine WBC Clumps Moderate Ur Squamous Epith Cells Occasional Urine Bacteria Occasional Ur Culture Indicated? Results to follow DS: Provider Date of admission: 09/24/16 20:10 Primary care physician: . No PCP Attending physician on admission: Zain Joseph MD Consults: 09/24/16 22:13 Consult to Physician [CONS] Routine Comment: left hip fx Consulting Provider: Cristian Peoples Jr. Consulting Provider Notified: Yes When should Consulting Provider be notified: Now Person Notified: [place] called Date Notified: 09/25/16 Time Notified: 08:01 09/25/16 11:38 Consult to Physical Therapy [CONS] Routine Reason for Physical Therapy: Evaluate and Treat Consult Comment: Touchdown weight-bear advance to 50% on left 09/25/16 11:39 Consult to Case Mgmt/Social Srvs [CONS] Routine Reason for Case Mgmt/Social Srvs: Home Health Rehab Equipment Consult to Occupational Therapy [CONS] Routine Reason for Occupational Therapy: Evaluate and Treat Discharging clinician: Ros Ugalde MD
== END 2016-09-30 13:20 | disposition swing bed (61) | DRG 481 ==
LOC: EDUNIT# → N.ED 19:12 → N.EDINP 20:10 → SUATTDRO 20:10 → N.3E 21:16
PROVIDERS: ADMIT Internal Medicine Infectious Disease; ATTEND Internal Medicine

== ENCOUNTER 2020-03-07 05:31 | Inpatient (IN) ==
[2020-03-01 11:13] LABS: Basophils % 0.5 % (0.0-0.8); Eosinophils # 0.3 10*3/uL (0.0-0.87); Hematocrit 34.8 VOL% (35.7-47.0); Immature Granulocytes % 0.2 %; Immature Granulocytes Absolute 0.01 #; Lymphocytes # 2.4 10*3/uL (1.4-4.0); Lymphocytes % 38.5 % (21.3-54.2); Mean Corpuscular HGB Conc 34.5 GM/DL (32-36); Mean Corpuscular Volume 98.3 FL (87-102); Mean Platelet Volume 9.9 FL (9.6-12.0); Monocytes % 8.2 % (1.7-12.7); Neutrophils % 48.6 % (38.7-73.9); Platelet Count 183 T/CUMM (130-400); Red Blood Count 3.54 MC/CUMM (3.8-5.5); Red Cell Distribution Width 12.4 % (9.3-17.3); White Blood Count 6.2 T/CUMM (4-12)
[2020-03-01 11:22] LABS: Bilirubin,Urine Negative (Negative); Blood, Urine Negative (Negative); Glucose,Urine (UA) Negative (Negative); Ketones,Urine Negative (Negative); Nitrite,Urine Negative (Negative); Protein,Urine Negative; RBC,Urine <1 /HPF (0-4); Urine Appearance CLEAR (Clear); Urine Color Straw (Yellow); Urine Specific Gravity 1.008 (1.001-1.035); Urine Urobilinogen < 2.0 EU/DL (0.2-1.0); WBC,Urine <1 /HPF (0-6)
[2020-03-01 11:25] LABS: PT Patient Result 10.8 SECS (9.8-11.9); Partial Thromboplastin Time 23.8 SECS (23.9-33.8)
[2020-03-01 11:34] LABS: Albumin 3.8 G/DL (3.4-5.0); Bilirubin,Total 0.8 MG/DL (0.2-1.0); Calcium 9.7 MG/DL (8.5-10.1); Osmolality,Calculated 272.1 MOS/KG (273-304); Total Protein 6.7 G/DL (6.4-8.3)
[2020-03-07] MEDS ORDERED: ceFAZolin 1,000 MG VIAL ONE (05:50)
[2020-03-07] MEDS ORDERED: VANCOMYCIN INJ 1,000 MG in SODIUM CHLORIDE 0.9% 250 ML IV ONE (06:00)
[2020-03-07] MEDS ORDERED: FAMOTIDINE 20 MG/2 ML VIAL IV ONE (06:41)
[2020-03-07] MEDS ORDERED: LACTATED RINGERS 1,000 ML IV SCH (07:00)
[2020-03-07] MEDS ORDERED: ceFAZolin 1,000 MG in SYRINGE 1 EACH IV ONE (07:00)
[2020-03-07] MEDS ORDERED: MAGNESIUM HYDROXIDE SUSP 30 ML UDCUP PO PRN (08:42)
[2020-03-07] MEDS ORDERED: diphenhydrAMINE CAP 25 MG CAPSULE PO PRN (08:42)
[2020-03-07] MEDS ORDERED: TEMAZEPAM 7.5 MG CAPSULE PO PRN (08:42)
[2020-03-07] MEDS ORDERED: LACTULOSE 20 GM/30 ML UDCUP PO PRN (08:42)
[2020-03-07] MEDS ORDERED: BISACODYL 10 MG SUPP RECTAL PRN (08:42)
[2020-03-07] MEDS ORDERED: PROMETHAZINE 25 MG/1 ML VIAL IM PRN (08:42)
[2020-03-07] MEDS ORDERED: ONDANSETRON 4 MG/2 ML VIAL IV PRN (08:42)
[2020-03-07 08:55] LABS: Bilirubin,Urine Negative (Negative); Blood, Urine Negative (Negative); Glucose,Urine (UA) Negative (Negative); Ketones,Urine Negative (Negative); Nitrite,Urine Negative (Negative); Protein,Urine Negative; RBC,Urine 1 /HPF (0-4); Urine Appearance CLEAR (Clear); Urine Color Straw (Yellow); Urine Specific Gravity 1.005 (1.001-1.035); Urine Urobilinogen < 2.0 EU/DL (0.2-1.0)
[2020-03-07] MEDS ORDERED: MORPHINE 4 MG/1 ML VIAL IV PRN (08:57)
[2020-03-07] MEDS ORDERED: propofoL 200 MG/20 ML VIAL IV ONE (09:03)
[2020-03-07] MEDS ORDERED: fentaNYL 100 MCG/2 ML VIAL ONE (09:03)
[2020-03-07] MEDS ORDERED: KETAMINE 500 MG/10 ML VIAL ONE (09:03)
[2020-03-07] MEDS ORDERED: MIDAZOLAM 2 MG/2 ML VIAL ONE (09:03)
[2020-03-07] MEDS ORDERED: LIDOCAINE 2% 5 ML VIAL ONE (09:03)
[2020-03-07] MEDS ORDERED: PHENYLEPHRINE DRIP 20 MG/250 ML PREMIX IV ONE (09:03)
[2020-03-07] MEDS ORDERED: BUPIVACAINE SPINAL 0.75% 2 ML AMP SPINAL ONE (09:03)
[2020-03-07] MEDS ORDERED: SODIUM CHLORIDE 0.9% 100 ML IV ONE (09:04)
[2020-03-07] MEDS ORDERED: TRANEXAMIC ACID 1,000 MG/10 ML VIAL ONE (09:04)
[2020-03-07] MEDS ORDERED: SODIUM CHLORIDE 0.9% 250 ML IV ONE (09:04)
[2020-03-07] MEDS ORDERED: LACTATED RINGERS 1,000 ML IV ONE (09:04)
[2020-03-07] MEDS ORDERED: GLYCOPYRROLATE 0.4 MG/2 ML VIAL ONE (09:04)
[2020-03-07] MEDS ORDERED: ACETAMINOPHEN 1,000 MG/100 ML VIAL IV ONE (09:04)
[2020-03-07] MEDS ORDERED: BUPIVACAINE MPF 0.25% 30 ML VIAL ONE (09:04)
[2020-03-07] MEDS ORDERED: PHENYLEPHRINE 1 MG/10 ML SYRINGE IV ONE (09:04)
[2020-03-07] MEDS: CHLORTHALIDONE 25 MG TABLET PO SCH ×2 (12:26→21:20)
[2020-03-07] MEDS: GLUCOSAMINE 500 MG TABLET PO SCH (12:26)
[2020-03-07] MEDS: PANTOPRAZOLE 40 MG TABLET PO SCH ×2 (12:26→21:19)
[2020-03-07] MEDS: POTASSIUM CHLORIDE 20 MEQ TABLET PO SCH ×2 (12:26→21:20)
[2020-03-07] MEDS: FUROSEMIDE 40 MG TABLET PO SCH (12:26)
[2020-03-07] MEDS: LOSARTAN 50 MG TABLET PO SCH (12:26)
[2020-03-07] MEDS: MULTIVITAMIN (CENTRUM) TABLET PO SCH (12:27)
[2020-03-07] MEDS: DOCUSATE SODIUM 100 MG CAPSULE PO SCH ×2 (12:27→21:19)
[2020-03-07] MEDS: ASPIRIN EC 81 MG TABLET PO SCH (12:27)
[2020-03-07] MEDS: MORPHINE 4 MG/1 ML VIAL IV PRN ×2 (12:28→16:45)
[2020-03-07] MEDS: ceFAZolin 1,000 MG in SYRINGE 1 EACH IV SCH ×2 (15:09→22:06)
[2020-03-07] MEDS: FONDAPARINUX 2.5 MG/0.5 ML SYRINGE SUBCUT SCH (17:52)
[2020-03-07] MEDS: SIMVASTATIN 40 MG TABLET PO SCH (21:19)
[2020-03-07] MEDS: carvediloL 12.5 MG TABLET PO SCH (21:20)
[2020-03-08 05:31] LABS: Basophils % 0.2 % (0.0-0.8); Hematocrit 27.8 VOL% (35.7-47.0); Hemoglobin 9.7 GM/DL (12.0-16.0); Immature Granulocytes % 0.2 %; Immature Granulocytes Absolute 0.02 #; Lymphocytes # 1.7 10*3/uL (1.4-4.0); Lymphocytes % 18.7 % (21.3-54.2); Mean Corpuscular HGB Conc 34.9 GM/DL (32-36); Mean Corpuscular Volume 97.2 FL (87-102); Mean Platelet Volume 9.6 FL (9.6-12.0); Monocytes % 10.8 % (1.7-12.7); Neutrophils % 70.1 % (38.7-73.9); Platelet Count 171 T/CUMM (130-400); Red Blood Count 2.86 MC/CUMM (3.8-5.5); White Blood Count 8.9 T/CUMM (4-12)
[2020-03-08 05:43] LABS: Calcium 9.3 MG/DL (8.5-10.1); Osmolality,Calculated 272.2 MOS/KG (273-304)
[2020-03-08] MEDS: GLUCOSAMINE 500 MG TABLET PO SCH (09:15)
[2020-03-08] MEDS: PANTOPRAZOLE 40 MG TABLET PO SCH ×2 (09:15→20:30)
[2020-03-08] MEDS: FUROSEMIDE 40 MG TABLET PO SCH (09:16)
[2020-03-08] MEDS: POTASSIUM CHLORIDE 20 MEQ TABLET PO SCH ×2 (09:16→20:30)
[2020-03-08] MEDS: DOCUSATE SODIUM 100 MG CAPSULE PO SCH ×2 (09:16→20:30)
[2020-03-08] MEDS: LOSARTAN 50 MG TABLET PO SCH (09:16)
[2020-03-08] MEDS: MULTIVITAMIN (CENTRUM) TABLET PO SCH (09:16)
[2020-03-08] MEDS: CHLORTHALIDONE 25 MG TABLET PO SCH ×2 (09:17→20:30)
[2020-03-08] MEDS: carvediloL 12.5 MG TABLET PO SCH ×2 (09:17→20:30)
[2020-03-08] MEDS: ASPIRIN EC 81 MG TABLET PO SCH (09:17)
[2020-03-08] MEDS: POTASSIUM CHLORIDE 20 MEQ TABLET PO PRN ×5 (11:19→23:07)
[2020-03-08] MEDS: FONDAPARINUX 2.5 MG/0.5 ML SYRINGE SUBCUT SCH (17:58)
[2020-03-08] MEDS: SIMVASTATIN 40 MG TABLET PO SCH (20:30)
[2020-03-09 05:30] LABS: Basophils % 0.2 % (0.0-0.8); Eosinophils % 0.4 % (0.00-10.9); Hematocrit 31.1 VOL% (35.7-47.0); Hemoglobin 10.6 GM/DL (12.0-16.0); Immature Granulocytes % 0.3 %; Immature Granulocytes Absolute 0.03 #; Lymphocytes # 1.6 10*3/uL (1.4-4.0); Lymphocytes % 16.7 % (21.3-54.2); Mean Corpuscular HGB Conc 34.1 GM/DL (32-36); Mean Platelet Volume 9.9 FL (9.6-12.0); Monocytes % 13.2 % (1.7-12.7); Neutrophils % 69.2 % (38.7-73.9); Platelet Count 166 T/CUMM (130-400); Red Blood Count 3.14 MC/CUMM (3.8-5.5); Red Cell Distribution Width 12.4 % (9.3-17.3); White Blood Count 9.6 T/CUMM (4-12)
[2020-03-09] MEDS: GLUCOSAMINE 500 MG TABLET PO SCH (10:30)
[2020-03-09] MEDS: LOSARTAN 50 MG TABLET PO SCH (10:31)
[2020-03-09] MEDS: POTASSIUM CHLORIDE 20 MEQ TABLET PO SCH (10:31)
[2020-03-09] MEDS: carvediloL 12.5 MG TABLET PO SCH (10:32)
[2020-03-09] MEDS: DOCUSATE SODIUM 100 MG CAPSULE PO SCH (10:32)
[2020-03-09] MEDS: CHLORTHALIDONE 25 MG TABLET PO SCH (10:32)
[2020-03-09] MEDS: MULTIVITAMIN (CENTRUM) TABLET PO SCH (10:32)
[2020-03-09] MEDS: PANTOPRAZOLE 40 MG TABLET PO SCH (10:32)
[2020-03-09] MEDS: ASPIRIN EC 81 MG TABLET PO SCH (10:33)
[2020-03-09] MEDS: FUROSEMIDE 40 MG TABLET PO SCH (10:33)
[2020-03-09 17:03] VITALS: BP 110/56
== END 2020-03-09 17:00 | disposition swing bed (61) | DRG 470 ==
LOC: N.OR 05:31 → N.SDSINP 05:32 → N.3E 10:10
PROVIDERS: ADMIT Orthopaedic Surgery; ATTEND Orthopaedic Surgery